=== PATIENT | female | born 1990 | race Caucasian/White ===

== ENCOUNTER 2016-08-25 13:38 | Emergency (ER) | payer SELFPAY ==
[2016-08-25] MEDS ORDERED: KETOROLAC TROMETHAMINE 30 MG/ML VIAL ONE (14:11)
[2016-08-25] MEDS ORDERED: ONDANSETRON HCL 4 MG/2 ML VIAL ONE (14:11)
[2016-08-25 14:21] LABS: ALBUMIN 4.5 g/dL (3.5-5.0); ALKALINE PHOSPHATASE 57 U/L (38-126); ALT 33 U/L (9-52); AST 19 U/L (14-36); BILIRUBIN, DIRECT 0.1 mg/dL (0.0-0.4); BILIRUBIN, TOTAL 0.6 mg/dL (0.2-1.3); BLOOD UREA NITROGEN 12 mg/dL (7-17); CALCIUM 9.2 mg/dL (8.4-10.2); CHLORIDE 102 mmol/L (98-107); CREATININE 0.7 mg/dL (0.5-1.0); EST GLOMERULAR FILTRATION RATE > 60 mL/min; GLUCOSE 146 mg/dL (70-100); LIPASE 67 U/L (23-300); POTASSIUM 3.6 mmol/L (3.5-5.1); SODIUM 138 mmol/L (137-145); TOTAL PROTEIN 8.5 g/dL (6.3-8.2)
[2016-08-25 14:44] LABS: HEMATOCRIT 20.3 % (36.0-48.0); MEAN CELL VOLUME 60.4 fL (80.0-100.0); MEAN CORPUS. HGB CONCENTRATION 30.3 g/dL (32.0-36.0); MEAN CORPUSCULAR HEMOGLOBIN 18.3 pg (29.0-35.0); MEAN PLATELET VOLUME 8.7 fL (7.4-10.4); PLATELET COUNT 323 X 10^3uL (130-440); RED BLOOD COUNT 3.36 X 10^6uL (4.20-6.10); RED CELL DISTRIBUTION WIDTH 23.1 % (11.5-14.5); WHITE BLOOD COUNT 16.6 X 10^3uL (3.9-10.7)
[2016-08-25 14:46] LABS: HEMOGLOBIN 6.1 g/dL (12.0-16.0); NEUTROPHIL % (Manual) 77 % (54.0-75.0)
[2016-08-25 14:47] LABS: BAND% (Manual) 14 % (0.0-1.0); LYMPHOCYTE % (Manual) 8 % (20.0-40.0); MONOCYTE % (Manual) 1 % (2.0-10.0); PLATELET ESTIMATE ADEQUATE
[2016-08-25 14:48] LABS: HELMET CELLS PRESENT; OVALOCYTES PRESENT; TEAR DROP CELLS PRESENT
[2016-08-25 15:06] LABS: INR 1.2
--- NOTE | 2016-08-25 15:31 | ER NURSING DOCUMENTATION ---
Nurse's Notes [facility] Name:Chen Forman Age:26 yrs Sex:Female :1990 Arrival Date:08/25/2016 Time:13:38 Bed4 Private MD: Diagnosis:Anemia;Abdominal Pain, Generalized Presentation: 08/25 13:41 Acuity: JIM 3 rh 13:46 Presenting complaint: Patient states: pt has had lower back pain with nausea and st vomiting for two days. Transition of care: Home. 13:46 Method Of Arrival: Private Vehicle st Triage Assessment: 13:47 General: Appears uncomfortable, Behavior is cooperative. Pain: Complains of pain in st lumbar area, posterior aspect of right lateral abdomen and right lower quadrant Pain currently is 9 out of 10 on a pain scale. At worst was 10 out of 10 on a pain scale. Pain began 2-3 days ago. EENT: Oral mucosa is dry. Cardiovascular: tachy. Respiratory: No deficits noted. GI: Abdomen is non- distended Abd is soft X 4 quads Abdomen is tender to palpation in right lower quadrant Reports nausea, vomiting, "can't keep any thing down.". Musculoskeletal:. Historical: - Allergies: No known drug Allergies; - Home Meds: 1. None - PMHx: None; - PSHx: None; - Tetanus: < 10 years. - Ebola Screening: : Patient denies exposure to infectious person. Patient denies travel to an Ebola-affected area in the 21 days before illness onset. . - Social history: Smoking status: Patient states was never smoker of tobacco. Patient uses alcohol but reports only rare drinking. Patient/guardian denies using marijuana. Screenin:51 Infectious Disease Risk None. Abuse screen: Denies threats or abuse. Denies injuries st from another. Nutritional screening: No deficits noted. Assessment: 13:40 General: pt denies any chance that she is pregnate. pt states her last menstrual cycle st was Jul 21.. 14:18 General: pt states that she has had similar back pain with her menstrual cycles for the st last two months but never when she is not in a menstrual cycle. pt also states that she has been passing blood clots with her urine or vaginally (pt is unsure.). Vital Signs: 12:07 BP 120 / 75; Pulse 98; Pulse Ox 100% ; st 13:50 BP 93 / 73; Pulse 101; Resp 16; Temp 97.8; Pulse Ox 92% on R/A; Pain 9/10; st 14:18 Pulse Ox 81% on R/A; Pain 2/10; st 14:44 BP 121 / 68; Pulse 105; Pulse Ox 99% 2 lpm ; st 14:45 BP 124 / 76; Pulse 99; Pulse Ox 100% on 2 lpm NC; st 14:45 BP 121 / 73; Pulse 100; Pulse Ox 100% ; st 15:15 BP 119 / 75; Pulse 97; Pulse Ox 100% ; Pain 2/10; st 14:18 when pt is resting. st ED Course: 13:39 Patient arrived in ED. ds 13:42 Triage completed. rh 13:46 Niki Taylor RN is Primary Nurse. st 13:50 Inserted peripheral IV: 20 gauge in left antecubital area and blood collected. rh 13:51 Valuables Remains with patient Patient has correct armband on for positive st identification. Placed in gown. Bed in low position. Pulse Ox - RN Monitoring Only NIBP On - RN Monitoring Only. 13:53 Woodrow Paulino MD is Attending Physician. cd 14:15 Oxygen Oxygen administration via nasal cannula @ 2L/min. st 14:34 Attending Physician role handed off by Woodrow Paulino MD sc 14:34 Chauncey Manzano MD is Attending Physician. sc 14:54 Inserted peripheral IV: 20 gauge in right antecubital area. st 18:35 Other attached rs Administered Medications: 14:02 Drug: Zofran 4 mg; Route: IVP; Infused Over: 2 mins; Site: left antecubital; st 14:46 Follow up: Response: Nausea is decreased st 14:02 Drug: NS 0.9% 1000 ml; Route: IV; Rate: bolus; Site: left antecubital; st 14:45 Follow up: IV Status: Completed infusion; IV Intake: 1000ml st 14:03 Drug: Toradol 30 mg; Route: IVP; Site: left antecubital; st 14:46 Follow up: Response: Pain is decreased st Medication: 15:20 Blood products: See transfusion record. st Intake: 14:45 IV: 1000ml; Total: 1000ml. st Outcome: 14:59 ER care complete, transfer ordered by . sc 15:13 Report given to Kathy LAND at [facility] 15:29 Transferred: Patient will be transferred to: [facility] st Acceptance Time: August 25, 2016 at 15:00 Patient's face sheet was faxed to accepting facility. Face Sheet included patient's name, address, age, gender, contact information and insurance information. Patient will be transported by: [facility] ground. Nurse and Physician Charting and Notes were sent to Accepting Facility. All tests and/or procedures with results, if applicable, were sent to accepting facility. 15:29 Condition: stable 15:29 Instructed on need for transfer 15:30 Patient [address] the ED. st Signatures: Niki Taylor RN RN st Stalker, Rachael, RN RN rs ot, Mayra, Reg Reg Chauncey Rodriguez MD MD sc Daley, Chris, MD MD cd Hofsess, Rachel
--- NOTE | 2016-08-25 15:31 | ER PHYSICIAN DOCUMENTATION ---
Physician Documentation [facility] Name:Chen Forman Age:26 yrs Sex:Female :1990 Arrival Date:08/25/2016 Time:13:38 Bed4 Private MD: Chauncey Bedoya Disposition: 08/25/16 14:59 Transfer ordered to [facility]. Diagnosis are Anemia, Abdominal Pain, Generalized. - Reason for transfer: Higher level of care. - Accepting physician is Dr. Au. - Condition is Serious. - Problem is new. - Symptoms are unchanged. COBRA Form completed? Yes Transfer - Mode of Transportation Ambulance HPI: 08/25 14:45 This 26 yrs old Female presents to ER via Private Vehicle with complaints of sc Back Pain. 14:45 The patient presents with pain that is acute, with no known mechanism of injury. The sc symptoms are located in the low back. Onset: The symptoms/episode began/occurred 2 day(s) ago. Associated signs and symptoms: Pertinent positives: nausea, vomiting. Severity of symptoms: At their worst the symptoms were moderate. The patient has experienced similar episodes in the past, chronically, but today's symptoms are worse, two days each menses patient develops low back pain but worse today with N/V. Historical: - Allergies: No known drug Allergies; - Home Meds: 1. None - PMHx: None; - PSHx: None; - Tetanus: < 10 years. - Ebola Screening: : Patient denies exposure to infectious person. Patient denies travel to an Ebola-affected area in the 21 days before illness onset. . - Social history: Smoking status: Patient states was never smoker of tobacco. Patient uses alcohol but reports only rare drinking. Patient/guardian denies using marijuana. ROS: 14:53 Eyes: Negative for injury, pain, redness, and discharge. sc ENT: Negative for injury, pain, and discharge. Neck: Negative for injury, pain, and swelling. Cardiovascular: Negative for chest pain, palpitations, and edema. Respiratory: Negative for shortness of breath, cough, wheezing, and pleuritic chest pain. MS/Extremity: Negative for injury and deformity. Skin: Negative for injury, rash, and discoloration. 14:53 Neuro: Negative for headache, weakness, numbness, tingling, and seizure. sc 14:53 Constitutional: Positive for fatigue. 14:53 Abdomen/GI: Positive for abdominal pain, nausea, vomiting. 14:53 Back: Positive for pain at rest. Exam: Constitutional: This is a well developed, well nourished patient who is awake, alert, and in no acute distress. Head/Face: Normocephalic, atraumatic. Eyes: Pupils equal round and reactive to light, extra-ocular motions intact. Lids and lashes normal. Conjunctiva and sclera are non-icteric and not injected. Cornea within normal limits. Periorbital areas with no swelling, redness, or edema. ENT: Nares patent. No nasal discharge, no septal abnormalities noted. Tympanic membranes are normal and external auditory canals are clear. Oropharynx with no redness, swelling, or masses, exudates, or evidence of obstruction, uvula midline. Mucous membranes moist. Neck: Trachea midline, no thyromegaly or masses palpated, and no cervical lymphadenopathy. Supple, full range of motion without nuchal rigidity, or vertebral point tenderness. No meningismus. Chest/axilla: Normal chest wall appearance and motion. Nontender with no deformity. No lesions are appreciated. Cardiovascular: Regular rate and rhythm with a normal S1 and S2. No gallops, murmurs, or rubs. Normal PMI, no JVD. No pulse deficits. Respiratory: Lungs have equal breath sounds bilaterally, clear to auscultation and percussion. No rales, rhonchi or wheezes noted. No increased work of breathing, no retractions or nasal flaring. 14:53 Neuro: Awake and alert, GCS 15, oriented to person, place, time, and situation. va Cranial nerves II-XII grossly intact. Motor strength 5/5 in all extremities. Sensory grossly intact. Cerebellar exam normal. Normal gait. 14:53 Abdomen/GI: Inspection: abdomen appears normal, Bowel sounds: absent, Palpation: mild abdominal tenderness, in all quadrants. 14:53 Back: pain, that is mild, ROM is normal, CVA tenderness, is absent, muscle spasm, is not present. 14:53 Skin: Appearance: Color: pale. 15:01 Neuro: Sensation: is normal, Gait: is steady, Deep tendon reflexes are 2+ (normal) in va the . Vital Signs: 12:07 BP 120 / 75; Pulse 98; Pulse Ox 100% ; st 13:50 BP 93 / 73; Pulse 101; Resp 16; Temp 97.8; Pulse Ox 92% on R/A; Pain 9/10; st 14:18 Pulse Ox 81% on R/A; Pain 2/10; st 14:44 BP 121 / 68; Pulse 105; Pulse Ox 99% 2 lpm ; st 14:45 BP 124 / 76; Pulse 99; Pulse Ox 100% on 2 lpm NC; st 14:45 BP 121 / 73; Pulse 100; Pulse Ox 100% ; st 15:15 BP 119 / 75; Pulse 97; Pulse Ox 100% ; Pain 2/10; st 14:18 when pt is resting. st MDM: 13:53 Patient medically screened. 14:55 Differential diagnosis: ectopic vs endometriosis vs other. Data reviewed: vital signs, va nurses notes, lab test result(s), and as a result, I will *Transfer Patient. Counseling: I had a detailed discussion with the patient and/or guardian regarding: the historical points, exam findings, and any diagnostic results supporting the discharge/admit diagnosis, lab results, the need to transfer to another facility, for higher level of care. 18:35 Other attached 08/25 14:22 Order name: BASIC METABOLIC PANEL [facility] 08/25 14:42 Interpretation: Normal. va 08/25 14:22 Order name: HEPATIC PANEL [facility] 08/25 14:42 Interpretation: Normal. va 08/25 14:22 Order name: LIPASE [facility] 08/25 14:42 Interpretation: Normal. va 08/25 14:47 Order name: CBC WITHOUT A DIFFERENTIAL [facility] 08/25 15:00 Interpretation: Abnormal: WHITE BLOOD COUNT 16.6; HEMOGLOBIN 6.1; HEMATOCRIT 20.3. va 08/25 14:49 Order name: MANUAL DIFFERENTIAL [facility] 08/25 14:59 Interpretation: Abnormal. va 08/25 14:49 Order name: HCG, SERUM [facility] 08/25 14:59 Interpretation: Normal. va 08/25 15:07 Order name: PROTIME/INR [facility] 08/25 13:59 Order name: NPO; Complete Time: 14:03 08/25 13:59 Order name: Urine Dip 08/25 14:29 Order name: Oxygen; Complete Time: 14:29 st 08/25 15:01 Order name: Transfuse 2 Units T & C'd PRBCs; Complete Time: 15:21 sc Dispensed Medications: 14:02 Drug: Zofran 4 mg; Route: IVP; Infused Over: 2 mins; Site: left antecubital; st 14:46 Follow up: Response: Nausea is decreased st 14:02 Drug: NS 0.9% 1000 ml; Route: IV; Rate: bolus; Site: left antecubital; st 14:45 Follow up: IV Status: Completed infusion; IV Intake: 1000ml st 14:03 Drug: Toradol 30 mg; Route: IVP; Site: left antecubital; st 14:46 Follow up: Response: Pain is decreased st Signatures: Niki Taylor RN RN st Stalker, Rachael, RN RN rs Chew, Scott, MD MD sc Daley, Chris, MD MD cd
[2016-08-25 15:39] LABS: ABO GROUP TYPE O; ANTIBODY SCREEN NEGATIVE; CROSSMATCH IMMEDIATE SPIN COMPATIBLE; RH TYPE POSITIVE
== END 2016-08-25 15:31 | disposition short-term general hospital (02) ==
LOC: ER 13:38
DX: D64.9 Anemia, unspecified (principal); R10.84 Generalized abdominal pain; R11.2 Nausea with vomiting, unspecified; R53.83 Other fatigue; M54.5 Low back pain; Z99.89 Dependence on other enabling machines and devices; Z74.3 Need for continuous supervision
CPT/HCPCS: 36415; 36430; 80048; 80076; 83690; 84703; 85007; 85027; 85610; 86850; 86900; 86901; 86920; 96361; 96374; 96375; 99285; A0425; A0427; J1885; J2405; P9040-BL

== ENCOUNTER 2016-12-01 12:08 | Emergency (ER) | payer MEDICAID ==
[2016-12-01 12:36] LABS: BASOPHILS 0.1 % (0.0-2.0); EOSINOPHILS 0.1 % (0.0-6.0); HEMATOCRIT 30.9 % (36.0-48.0); HEMOGLOBIN 9.7 g/dL (12.0-16.0); LYMPHOCYTES 11.2 % (20.0-40.0); LYMPHOCYTES# 1.2 X 10^3uL (0.8-3.8); MEAN CELL VOLUME 73.2 fL (80.0-100.0); MEAN CORPUS. HGB CONCENTRATION 31.5 g/dL (32.0-36.0); MEAN CORPUSCULAR HEMOGLOBIN 23.1 pg (29.0-35.0); MEAN PLATELET VOLUME 9.3 fL (7.4-10.4); MONOCYTES 4.8 % (2.0-10.0); MONOCYTES# 0.5 X 10^3uL (0.2-1.0); NEUTROPHILS 83.8 % (54.0-75.0); NEUTROPHILS# 9.2 X 10^3uL (2.6-6.7); PLATELET COUNT 328 X 10^3uL (130-440); RED BLOOD COUNT 4.22 X 10^6uL (4.20-6.10); WHITE BLOOD COUNT 10.9 X 10^3uL (3.9-10.7)
[2016-12-01 12:49] LABS: RED CELL DISTRIBUTION WIDTH 18.3 % (11.5-14.5)
[2016-12-01] MEDS ORDERED: ONDANSETRON HCL 4 MG/2 ML VIAL ONE (12:51)
[2016-12-01] MEDS ORDERED: KETOROLAC TROMETHAMINE 30 MG/ML VIAL ONE (12:51)
[2016-12-01 13:18] LABS: BLOOD UREA NITROGEN 13 mg/dL (7-17); CALCIUM 9.7 mg/dL (8.4-10.2); CHLORIDE 111 mmol/L (98-107); EST GLOMERULAR FILTRATION RATE > 60 mL/min; GLUCOSE 132 mg/dL (70-100); POTASSIUM 3.6 mmol/L (3.5-5.1); SODIUM 139 mmol/L (137-145)
[2016-12-01] MEDS ORDERED: NORMAL SALINE 1,000 ML IV ONE (13:44)
--- NOTE | 2016-12-01 15:09 | ER NURSING DOCUMENTATION ---
Nurse's Notes [facility] Name:Chen Forman Age:26 yrs Sex:Female :1990 Arrival Date:12/01/2016 Time:12:08 Bed3 Private MD: Diagnosis:Dysfunctional Uterine Bleeding Presentation: 12/01 12:10 Transition of care: Home. st 12:26 Acuity: JIM 2 st 12:43 Method Of Arrival: Private Vehicle st 13:07 Presenting complaint: Patient states: pt states that she has a grapefruit sized fibroid st that was dx in August pt has not made any fallow ups since that dx. pt started her menstrual cycle 4 days ago and feels that she is loosing to much blood. Triage Assessment: 12:10 General: Appears uncomfortable, Behavior is drowsy, pt does not want to cooperate with st questioning. . Pain: Complains of pain in lumbar area, right lower quadrant and left lower quadrant Pain currently is 9 out of 10 on a pain scale. GI: Abdomen is flat, non- distended Abd is soft X 4 quads Abdomen is tender to palpation in right lower quadrant. : Reports vaginal bleeding that is heavy flow 3 pads filled this AM. Historical: - Allergies: No known drug Allergies; - Home Meds: 1. None - PMHx: NONE; - PSHx: NONE; - Tetanus: < 10 years. - Ebola Screening: : Patient denies exposure to infectious person. Patient denies travel to an Ebola-affected area in the 21 days before illness onset. . - Immunization history: Flu Vaccine None. - Social history: Smoking status: Patient states was never smoker of tobacco. Patient uses alcohol occasionally. Patient/guardian denies using marijuana. Screenin:05 Infectious Disease Risk None. Abuse screen: Denies threats or abuse. Nutritional mk2 screening: No deficits noted. Assessment: 12:45 General: medical records ordered . st 13:15 Reassessment: Pt is sitting up in bed complaining of lower back pain. Pt also admits mk2 she has had burning and frequency with urination. Pt will call when she can give a UA. Plan to give tylenol if toradol doesn't resolve pain. . See Triage Assessment done by same RN. See Triage Assessment done by same RN. See Triage Assessment done by same RN. See Triage Assessment done by same RN. See Triage Assessment done by same RN. Vital Signs: 12:47 BP 111 / 74 (auto/); mk2 12:49 Pulse Ox 100% ; mk2 13:00 BP 115 / 75 (auto/); mk2 13:04 Pulse Ox 100% ; mk2 13:15 BP 132 / 84 (auto/); mk2 13:19 Pulse Ox 99% ; mk2 13:19 Pain 0/10; mk2 14:16 BP 116 / 62 (auto/); mk2 14:19 Pulse Ox 100% ; mk2 14:45 BP 104 / 47 (auto/); mk2 14:49 Pulse Ox 100% ; mk2 14:49 Pain 3/10; mk2 ED Course: 12:09 Patient arrived in ED. ama 12:12 Chauncey Manzano MD is Attending Physician. sc 12:26 Niki Taylor, RN is Primary Nurse. st 12:[address] 12:28 Inserted peripheral IV: 20 gauge in right antecubital area and blood collected. st 12:30 Oxygen Oxygen administration via nasal cannula @ 2L/min. st 13:05 Report received from Douglas Prince Remains with patient Patient has correct mk2 armband on for positive identification. Placed in gown. Bed in low position. Call light in reach. Side rails up X 1. Pulse ox on. NIBP on. 13:31 Humza Sebastian MD is Referral Physician. sc 13:48 Urine collected. Clean catch specimen. mk2 13:48 Verbal reassurance given. Warm blanket given. mk2 13:53 Appears to be sleeping. mk2 14:29 Diet tray given. PO fluids given. crackers given to pt. mk2 15:04 Primary Nurse role handed off by Niki Taylor RN mk2 15:04 Tata Denney, RN is Primary Nurse. mk2 Administered Medications: 12:41 Drug: Toradol 30 mg; Route: IVP; Site: right antecubital; st 13:15 Follow up: Response: No change in condition mk2 12:42 Drug: Zofran 4 mg; Route: IVP; Infused Over: 2 mins; Site: right antecubital; st 13:15 Follow up: Response: No adverse reaction mk2 12:42 Drug: NS 0.9% 1000 ml; Route: IV; Rate: bolus; Site: right antecubital; st 13:49 Follow up: IV Status: Completed infusion; IV Intake: 1000ml mk2 13:49 Drug: NS 0.9% 1000 ml; Route: IV; Rate: bolus; Site: right antecubital; mk2 14:28 Follow up: IV Status: Completed infusion; IV Intake: 1000ml mk2 13:49 Drug: Dilaudid 1 mg; Route: IVP; Site: right antecubital; mk2 13:53 Follow up: Response: Pain is decreased mk2 14:29 Drug: NS 0.9% 1000 ml; Route: IV; Rate: 250 ml/hr; Site: right antecubital; mk2 15:04 Follow up: IV Status: Completed infusion; IV Intake: 1000ml ; order was for 250ml, all mk2 given due to serverity of dehydration. aware. Point of Care Testing: Urine Dip: 13:49 pH: 5.5; ; Specific [place]: 1.030; Ketones: 4 mg/dL; Glucose: Negative; Protein: 1 mk2 mg/dL; Leukocytes: Negative; Nitrite: Negative ; Blood: 3 Fareed/?L; Bilirubin: 1 mg/dL; Urobilinogen: Normal Intake: 13:49 IV: 1000ml; Total: 1000ml. mk2 14:28 IV: 1000ml; Total: 2000ml. mk2 15:04 IV: 1000ml; Total: 3000ml. 2 Outcome: 13:32 Discharge ordered by . mo 14:49 Discharge instructions given to patient, Instructed on discharge instructions, follow 2 up and referral plans. medication usage, Prescriptions given X 2. 14:49 IV D/Trevon 15:07 Discharged to home ambulatory. 2 15:07 Condition: improved 15:07 Discharge Assessment: Patient awake, alert and oriented x 3. No cognitive and/or functional deficits noted. Patient verbalized understanding of disposition instructions. 15:08 Patient left the ED. 2 12/02 09:07 Discharge F/U Call: Unable to reach: no answer st Signatures: Niki Taylor RN RN st Chew, Scott, MD MD sc Kruger, Meg, RN RN 2 Vince Okeefe, Reg Reg ama
--- NOTE | 2016-12-01 15:09 | ER PHYSICIAN DOCUMENTATION ---
Physician Documentation [facility] Name:Chen Forman Age:26 yrs Sex:Female :1990 Arrival Date:12/01/2016 Time:12:08 Bed3 Private MD: Chauncey Bedoya Disposition: 12/01/16 13:32 Discharged to Home/Self Care. Impression: Dysfunctional Uterine Bleeding. - Condition is Fair. - Discharge Instructions: DYSFUNCTIONAL UTERINE BLEEDING. - Prescriptions for Zofran 4 mg Oral Tablet - take 1 tablet by ORAL route every 12 hours .; 20 tablet. Hydrocodone- Acetaminophen 5-325 mg Oral Tablet - take 1 tablet by ORAL route every 6 hours As needed; 20 tablet. - Medical Reconciliation form form. - Follow up: Humza Sebastian MD; When: 2 - 3 days; Reason: Recheck today's complaints, Continuance of care. - Problem is an acute exacerbation. - Symptoms have improved. HPI: 12/01 12:52 This 26 yrs old Female presents to ER via Private Vehicle with complaints of sc Vaginal Bleeding, Nausea/Vomiting. 12:52 The patient presents with vaginal bleeding that is heavy, with clots, reports using 3 sc pads or tampons per day. Onset: The symptoms/episode began/occurred 3 month(s) ago, and became worse today. Associated signs and symptoms: Pertinent positives: nausea, vomiting. Ectopic Risk: No risk factors noted. The patient has experienced a previous episode, approximately 3 months ago, and the symptoms today are exactly the same, uterine fibroid with bleeding requiring transfusion. Historical: - Allergies: No known drug Allergies; - Home Meds: 1. None - PMHx: NONE; - PSHx: NONE; - Tetanus: < 10 years. - Ebola Screening: : Patient denies exposure to infectious person. Patient denies travel to an Ebola-affected area in the 21 days before illness onset. . - Immunization history: Flu Vaccine None. - Social history: Smoking status: Patient states was never smoker of tobacco. Patient uses alcohol occasionally. Patient/guardian denies using marijuana. ROS: 12:53 Positive for pelvic pain, vaginal bleeding, menstrual abnormality. sc 12:53 Eyes: Negative for injury, pain, redness, and discharge. sc ENT: Negative for injury, pain, and discharge. Neck: Negative for injury, pain, and swelling. Cardiovascular: Negative for chest pain, palpitations, and edema. Respiratory: Negative for shortness of breath, cough, wheezing, and pleuritic chest pain. Abdomen/GI: Negative for abdominal pain, nausea, vomiting, diarrhea, and constipation. Back: Negative for injury and pain. Skin: Negative for injury, rash, and discoloration. 12:53 Neuro: Negative for headache, weakness, numbness, tingling, and seizure. 12:53 Constitutional: Positive for fatigue. Exam: Head/Face: Normocephalic, atraumatic. Eyes: Pupils equal round and reactive to light, extra-ocular motions intact. Lids and lashes normal. Conjunctiva and sclera are non-icteric and not injected. Cornea within normal limits. Periorbital areas with no swelling, redness, or edema. ENT: Nares patent. No nasal discharge, no septal abnormalities noted. Tympanic membranes are normal and external auditory canals are clear. Oropharynx with no redness, swelling, or masses, exudates, or evidence of obstruction, uvula midline. Mucous membranes moist. Neck: Trachea midline, no thyromegaly or masses palpated, and no cervical lymphadenopathy. Supple, full range of motion without nuchal rigidity, or vertebral point tenderness. No meningismus. Chest/axilla: Normal chest wall appearance and motion. Nontender with no deformity. No lesions are appreciated. Cardiovascular: Regular rate and rhythm with a normal S1 and S2. No gallops, murmurs, or rubs. Normal PMI, no JVD. No pulse deficits. Respiratory: Lungs have equal breath sounds bilaterally, clear to auscultation and percussion. No rales, rhonchi or wheezes noted. No increased work of breathing, no retractions or nasal flaring. Back: No spinal tenderness. No costovertebral tenderness. Full range of motion. 12:53 Neuro: Awake and alert, GCS 15, oriented to person, place, time, and situation. sc Cranial nerves II-XII grossly intact. Motor strength 5/5 in all extremities. Sensory grossly intact. Cerebellar exam normal. Normal gait. 12:53 Constitutional: The patient appears lethargic, in obvious distress. 12:53 Abdomen/GI: Inspection: abdomen appears normal, Bowel sounds: normal, Palpation: mild abdominal tenderness, in the suprapubic area. 12:53 : CVA tenderness, is absent, Pelvic Exam: The exam is refused by the patient/guardian. The risks and consequences are understood by the patient. Vital Signs: 12:47 BP 111 / 74 (auto/); mk2 12:49 Pulse Ox 100% ; mk2 13:00 BP 115 / 75 (auto/); mk2 13:04 Pulse Ox 100% ; mk2 13:15 BP 132 / 84 (auto/); mk2 13:19 Pulse Ox 99% ; mk2 13:19 Pain 0/10; mk2 14:16 BP 116 / 62 (auto/); mk2 14:19 Pulse Ox 100% ; mk2 14:45 BP 104 / 47 (auto/); mk2 14:49 Pulse Ox 100% ; mk2 14:49 Pain 3/10; mk2 MDM: 12:12 Patient medically screened. sc 12:57 Differential diagnosis: dysfunctional uterine bleeding, dysmenorrhea, menorrhea, Data sc reviewed: vital signs, nurses notes, lab test result(s), and as a result, I will continue to observe the patient, administer IV fluids. 12/01 13:32 Order name: CBC AUTO DIF, MDIF/RMOR IF IND; Complete Time: 15:21 EDMS 12/01 13:32 Order name: HCG, SERUM; Complete Time: 15:21 EDMS 12/01 13:32 Order name: BASIC METABOLIC PANEL; Complete Time: 15:21 EDMS 12/01 12:30 Order name: Oxygen; Complete Time: 12:30 st Dispensed Medications: 12:41 Drug: Toradol 30 mg; Route: IVP; Site: right antecubital; st 13:15 Follow up: Response: No change in condition mk2 12:42 Drug: Zofran 4 mg; Route: IVP; Infused Over: 2 mins; Site: right antecubital; st 13:15 Follow up: Response: No adverse reaction mk2 12:42 Drug: NS 0.9% 1000 ml; Route: IV; Rate: bolus; Site: right antecubital; st 13:49 Follow up: IV Status: Completed infusion; IV Intake: 1000ml mk2 13:49 Drug: NS 0.9% 1000 ml; Route: IV; Rate: bolus; Site: right antecubital; mk2 14:28 Follow up: IV Status: Completed infusion; IV Intake: 1000ml mk2 13:49 Drug: Dilaudid 1 mg; Route: IVP; Site: right antecubital; mk2 13:53 Follow up: Response: Pain is decreased mk2 14:29 Drug: NS 0.9% 1000 ml; Route: IV; Rate: 250 ml/hr; Site: right antecubital; mk2 15:04 Follow up: IV Status: Completed infusion; IV Intake: 1000ml ; order was for 250ml, all mk2 given due to serverity of dehydration. MD pantoja. Point of Care Testing: Urine Dip: 13:49 pH: 5.5; ; Specific [place]: 1.030; Ketones: 4 mg/dL; Glucose: Negative; Protein: 1 mk2 mg/dL; Leukocytes: Negative; Nitrite: Negative ; Blood: 3 Fareed/?L; Bilirubin: 1 mg/dL; Urobilinogen: Normal Signatures: Niki Taylor, Chauncey Jamil RN, MD MD sc Kruger, Meg, SHANDA RN mk2
== END 2016-12-01 15:08 | disposition home or self-care (01) ==
LOC: ER 12:08
DX: N93.8 Other specified abnormal uterine and vaginal bleeding (principal); R11.2 Nausea with vomiting, unspecified; R10.2 Pelvic and perineal pain; E86.0 Dehydration; R53.83 Other fatigue; M54.5 Low back pain
CPT/HCPCS: 80048; 84703; 85025; 96361; 96374; 96375; 99284; J1170; J1885; J2405; J7030